=== PATIENT | male | born 1975 | race American Indian/Alaskan Native ===

== ENCOUNTER 2020-06-21 02:40 | Emergency (ER) | payer BC, MEDICAID ==
[~2020-06-21] VITALS: Ht 188 cm; Wt 109.1 kg
[~2020-06-21 02:40] MED LIST: ACET-1008 PO; NO HOME MEDS
[2020-06-21] MEDS ORDERED: AMOX500C2 PO (03:02)
[2020-06-21] MEDS ORDERED: ondansetron 4mg rapidly disintigrating tab PO ONE (03:05)
[2020-06-21] MEDS ORDERED: amoxicillin 250mg capsule PO ONE (03:05)
[2020-06-21] MEDS ORDERED: HYDROcodone/acetaminophen 10/325mg tab PO ONE (03:05)
[2020-06-21 03:13] VITALS: BP 121/77
== END 2020-06-21 03:15 | disposition home or self-care (01) ==
LOC: ER 02:41
DX: K08.89 Other specified disorders of teeth and supporting structures (principal); F12.90 Cannabis use, unspecified, uncomplicated; Z98.890 Other specified postprocedural states; Z88.2 Allergy status to sulfonamides; Z79.899 Other long term (current) drug therapy
CPT/HCPCS: 99284